=== PATIENT | female | born 1980 | race Asian ===

== ENCOUNTER 2018-08-08 03:51 | Emergency (ER) | payer BC ==
[~2018-08-08] VITALS: Ht 149.9 cm; Wt 49.9 kg
[2018-08-08 04:02] VITALS: Ht 149.9 cm; Wt 49.9 kg
[2018-08-08 07:05] LABS: CALCIUM 8.1 mg/dL (8.5-10.1); CARBON DIOXIDE 28.2 mmol/L (21-32); CHLORIDE SERUM 103 mmol/L (98-107); CREATININE SERUM 0.6 mg/dL (0.6-1.0); GFR1 > 60 mL/min; GLUCOSE SERUM 104 mg/dL (74-106); POTASSIUM SERUM 4.1 mmol/L (3.5-5.1); SODIUM SERUM 140 mmol/L (136-145)
[2018-08-08 07:09] LABS: ALKALINE PHOSPHATASE 77 U/L (46-116); ALT/SGPT 72 U/L (14-59); AST/SGOT 52 U/L (15-37); BASOPHIL % 0.1 % (0-2); BILIRUBIN TOTAL 0.4 mg/dL (0.20-1.00); LIPASE 67 IU/L (73-393); PLATELET COUNT 198 x10^3mcL (130-400); TOTAL PROTEIN, SERUM 6.5 g/dL (6.4-8.2)
[2018-08-08 07:20] LABS: ALBUMIN 3.1 g/dL (3.4-5.0)
[2018-08-08 09:23] LABS: UA SPECIFIC GRAVITY <=1.005 (1.005-1.035); microscopic required? YES; urine erythrocyte TRACE (NEGATIVE)
[2018-08-08 13:56] VITALS: BP 116/89
== END 2018-08-08 13:57 | disposition left against medical advice (07) ==
LOC: ED 03:51
PROVIDERS: Emergency Medicine
DX: K56.699 Other intestinal obstruction unspecified as to partial versus complete obstruction (principal); Z98.890 Other specified postprocedural states
CPT/HCPCS: J0694; J2405; J2550; J3010; J7030; Q0092; Q0162; Q9967